=== PATIENT | female | born 1995 | race Caucasian/White ===

== ENCOUNTER 2025-04-21 11:51 | Emergency (ER) | payer OTHER ==
[~2025-04-21] VITALS: Ht 167.6 cm; Wt 53.1 kg
[2025-04-21 12:13] VITALS: PULSE 82; RESP 18; TEMP 98.4; O2SAT 100
[2025-04-21] MEDS ORDERED: PROMETHAZINE 12.5MG/ NACL 0.9% 12.5 MG/50 ML BAG IV ONE (12:45)
== END 2025-04-21 13:29 | disposition left against medical advice (07) ==
LOC: ER 12:27
DX: O21.9 Vomiting of pregnancy, unspecified (principal); Z3A.00 Weeks of gestation of pregnancy not specified